=== PATIENT | female | born 2000 | race Hispanic/Latino ===

== ENCOUNTER 2023-01-21 18:55 | Emergency (ER) | payer BC ==
[~2023-01-21] VITALS: Ht 149.9 cm; Wt 79.4 kg
[2023-01-21 19:47] LABS: BASOPHILS # (AUTO) 0.05 K/uL (0.00-0.20); BASOPHILS % (AUTO) 0.6 % (0.0-5.0); EOSINOPHILS # (AUTO) 0.12 K/uL (0.00-0.70); EOSINOPHILS % (AUTO) 1.4 % (0.0-8.0); HEMATOCRIT 42.3 % (36-48); IMMATURE GRANULOCYTE ABSOLUTE 0.03 K/uL (0-1); LYMPHOCYTES # (AUTO) 2.8 K/uL (1.0-4.8); LYMPHOCYTES % (AUTO) 33.1 % (21.0-51.0); MEAN CORPUSCULAR HEMOGLOBIN 28.6 pg (27.0-33.0); MEAN CORPUSCULAR HGB CONC 33.1 g/dL (32.0-36.0); MEAN CORPUSCULAR VOLUME 86.5 fL (79-99); MONOCYTES # (AUTO) 0.5 K/uL (0.1-1.0); MONOCYTES % (AUTO) 5.9 % (3.0-13.0); NEUTROPHILS # (AUTO) 4.9 K/uL (1.8-7.7); NEUTROPHILS % (AUTO) 58.6 % (40.0-77.0); PLATELET COUNT (AUTO) 314 K/uL (130-400); RED BLOOD CELL COUNT(AUTO) 4.89 MIL/uL (4.00-5.50); RED CELL DISTRIBUTION WIDTH 12.3 % (11.0-15.5); WHITE BLOOD COUNT (AUTO) 8.4 K/uL (4.8-10.8)
[2023-01-21] MEDS ORDERED: MAG/ALUM/SIMETH 30 ML UDCUP PO ONE (20:00)
[2023-01-21] MEDS ORDERED: LIDOCAINE HCL 2% VISCOUS 15 ML UDCUP PO ONE (20:00)
[2023-01-21 20:01] LABS: APPEARANCE,URINE CLOUDY (CLEAR); BILIRUBIN,URINE NEGATIVE (NEGATIVE); COLOR,URINE YELLOW (YELLOW); GLUCOSE, URINE (UA) NEGATIVE (NEGATIVE); KETONES,URINE NEGATIVE (NEGATIVE); LEUKOCYTE ESTERASE ,URINE 25 Leu/uL (NEGATIVE); NITRATE,URINE NEGATIVE (NEGATIVE); OCCULT BLOOD,URINE NEGATIVE (NEGATIVE); PROTEIN,URINE 20 mg/dL (NEGATIVE); UROBILINOGEN,URINE 0.2 mg/dL (0.2-1.0)
[2023-01-21 20:02] LABS: ADD UA MICROSCOPIC YES
[2023-01-21 20:07] LABS: BACTERIA,URINE FEW /HPF (None Seen); MUCUS,URINE RARE LPF (None Seen); SQUAMOUS EPITHELIAL CELL,UR RARE /HPF (0-2); UNCLASSIFIED CRYSTAL 12 /HPF (None Seen); YEAST,URINE BUDDING FEW /HPF (None Seen)
[2023-01-21 20:09] LABS: CREATININE 0.7 mg/dL (0.5-1.5); POTASSIUM 3.6 mmol/L (3.5-5.1)
[2023-01-21 20:19] LABS: ALBUMIN 4.1 g/dL (3.5-5.0); BILIRUBIN,TOTAL 0.2 mg/dL (0.2-1.0); TOTAL PROTEIN, SERUM 7.6 g/dL (6.0-8.3)
[2023-01-21] MEDS ORDERED: OMEP40CA21 PO (21:12)
[2023-01-21] MEDS ORDERED: CALC500T7 PO (21:12)
[2023-01-21 21:14] VITALS: BP 105/68; PULSE 75; RESP 16; O2SAT 98
== END 2023-01-21 21:31 | disposition home or self-care (01) ==
LOC: EDH 18:55
DX: R07.89 Other chest pain (principal); K21.9 Gastro-esophageal reflux disease without esophagitis
CPT/HCPCS: 36415; 71045; 76705; 80053; 80061; 81001; 81025; 82088; 82550; 83690; 83835; 83874; 84244; 84484; 85025; 85378; 87088; 93005

== ENCOUNTER → 2023-02-19 | Outpatient (CLI) | payer BC ==
[~2023-02-19] MED LIST: CALC500T7 PO; OMEP40CA21 PO
== END | disposition home or self-care (01) ==
LOC: SHCH 09:55
PROVIDERS: ATTEND Student in an Organized Health Care Education/Training Program
DX: I07.1 Rheumatic tricuspid insufficiency (principal)
CPT/HCPCS: 93306